=== PATIENT | female | born 1940 | race Caucasian/White ===

== ENCOUNTER → 2019-05-20 | Outpatient (CLI) | payer MEDICARE ==
[2019-05-20 10:46] LABS: BASO # 0.1 10*3/uL (0.0-0.1); EOS # 0.3 10*3/uL (0.0-0.4); EOS % 3.9 % (1.0-4.0); HEMATOCRIT 40.7 % (37.0-47.0); HEMOGLOBIN 12.8 g/dl (12.0-16.0); LYMPH # 1.4 10*3/uL (1.3-4.4); LYMPH % 17.1 % (27.0-41.0); MEAN CELL VOLUME 84.8 fl (81.0-99.0); MEAN CORPUSCULAR HGB 26.7 pg (27.0-31.0); MEAN CORPUSCULAR HGB CONC 31.4 g/dl (33.0-37.0); MEAN PLATELET VOLUME 11.1 fl (9.6-12.3); MONO # 0.6 10*3/uL (0.1-1.0); NEUT # 5.7 10*3/uL (2.3-7.9); NEUT % 70.6 % (47.0-73.0); PLATELET COUNT AUTOMATED 210 10*3/uL (130-400); RED CELL DISTRI WIDTH 14.9 % (0-14.5); WHITE BLOOD COUNT 8.1 10*3/uL (4.8-10.8)
[2019-05-20 11:13] LABS: ALBUMIN 3.8 gm/dl (3.1-4.5); ALKALINE PHOSPHATASE 57 U/L (45-117); BUN 13 mg/dl (7-24); CHLORIDE 106 mmol/L (98-107); CHOLESTEROL 179 mg/dL (<200); CREATININE 0.94 mg/dL (0.55-1.02); FREE T4 1.19 ng/dl (0.76-1.46); HDL CHOLESTEROL 56 mg/dl (40-60); LDL CHOLESTEROL 88 mg/dL (9-159); POTASSIUM 4.1 mmol/L (3.5-5.1); SGOT/AST 20 IU/L (3-35); SGPT/ALT 18 U/L (12-78); SODIUM 139 mmol/L (136-145); TOTAL PROTEIN 7.9 gm/dL (6.4-8.2); TRIGLYCERIDES 175 mg/dl (<150); VLDL CHOLESTEROL 35 mg/dL (6-40)
[2019-05-20 11:21] LABS: VITAMIN D, 25-HYDROXY 36.9 ng/mL (30-100)
== END | disposition home or self-care (01) ==
LOC: LAB 10:07
PROVIDERS: Internal Medicine
DX: E11.9 Type 2 diabetes mellitus without complications (principal); E03.9 Hypothyroidism, unspecified; E78.2 Mixed hyperlipidemia; I10 Essential (primary) hypertension; E55.9 Vitamin D deficiency, unspecified; D51.9 Vitamin B12 deficiency anemia, unspecified; D52.9 Folate deficiency anemia, unspecified

== ENCOUNTER → 2019-11-27 | Outpatient (CLI) | payer MEDICARE ==
[2019-11-27 09:41] LABS: BASO # 0.1 10*3/uL (0.0-0.1); BASO % 1.2 % (0.0-1.0); EOS # 0.3 10*3/uL (0.0-0.4); EOS % 3.5 % (1.0-4.0); HEMATOCRIT 39.5 % (37.0-47.0); HEMOGLOBIN 12.5 g/dl (12.0-16.0); LYMPH # 1.9 10*3/uL (1.3-4.4); LYMPH % 24.1 % (27.0-41.0); MEAN CELL VOLUME 81.4 fl (81.0-99.0); MEAN CORPUSCULAR HGB 25.8 pg (27.0-31.0); MEAN CORPUSCULAR HGB CONC 31.6 g/dl (33.0-37.0); MONO # 0.6 10*3/uL (0.1-1.0); MONO % 7.6 % (3.0-9.0); NEUT % 63.2 % (47.0-73.0); PLATELET COUNT AUTOMATED 217 10*3/uL (130-400); RED BLOOD COUNT 4.85 10*6/uL (4.10-5.10); RED CELL DISTRI WIDTH 15.3 % (0-14.5); WHITE BLOOD COUNT 7.8 10*3/uL (4.8-10.8)
[2019-11-27 10:02] LABS: ALBUMIN 3.6 gm/dl (3.1-4.5); ALKALINE PHOSPHATASE 59 U/L (45-117); BUN 19 mg/dl (7-24); CHLORIDE 107 mmol/L (98-107); CHOLESTEROL 165 mg/dL (<200); CREATININE 0.89 mg/dL (0.55-1.02); POTASSIUM 3.9 mmol/L (3.5-5.1); SGOT/AST 17 IU/L (3-35); SGPT/ALT 23 U/L (12-78); SODIUM 137 mmol/L (136-145); TOTAL PROTEIN 7.8 gm/dL (6.4-8.2); TRIGLYCERIDES 142 mg/dl (<150); VLDL CHOLESTEROL 28 mg/dL (6-40)
[2019-11-27 10:08] LABS: FREE T4 1.13 ng/dl (0.76-1.46); HDL CHOLESTEROL 58 mg/dl (40-60); LDL CHOLESTEROL 79 mg/dL (9-159)
[2019-11-27 11:30] LABS: VITAMIN D, 25-HYDROXY 40.7 ng/mL (30-100)
== END | disposition home or self-care (01) ==
LOC: LAB 09:21
PROVIDERS: Internal Medicine
DX: I10 Essential (primary) hypertension (principal); E11.9 Type 2 diabetes mellitus without complications; I48.20 Chronic atrial fibrillation, unspecified; E78.2 Mixed hyperlipidemia; E55.9 Vitamin D deficiency, unspecified

== ENCOUNTER 2020-12-03 15:01 | Inpatient (IN) | payer MEDICARE ==
[2020-12-03] VITALS (7 sets, daily range): BP systolic 133–195; BP diastolic 65–104
[~2020-12-03] VITALS: Ht 165.1 cm; Wt 97.1 kg
[2020-12-03] MEDS ORDERED: GLIPIZIDE10 M2 PO (15:38)
[2020-12-03] MEDS ORDERED: 'CLONIDINE0.1 MG PO ×2 (15:38→19:55)
[2020-12-03] MEDS ORDERED: GLUCOPHAGE1000 MG PO (15:39)
[2020-12-03] MEDS ORDERED: RAMIPRIL10 MG PO (15:39)
[2020-12-03] MEDS ORDERED: LOPRESSOR50 M1 PO (15:43)
[2020-12-03] MEDS ORDERED: METOPROLOL TART75 MG PO (15:44)
[2020-12-03 15:45] LABS: BASO # 0.1 10*3/uL (0.0-0.1); EOS # 0.2 10*3/uL (0.0-0.4); EOS % 2.2 % (1.0-4.0); HEMATOCRIT 38.5 % (37.0-47.0); LYMPH # 1.9 10*3/uL (1.3-4.4); LYMPH % 20.3 % (27.0-41.0); MEAN CELL VOLUME 82.4 fl (81.0-99.0); MEAN CORPUSCULAR HGB 25.1 pg (27.0-31.0); MEAN CORPUSCULAR HGB CONC 30.4 g/dl (33.0-37.0); MEAN PLATELET VOLUME 11.3 fl (9.6-12.3); MONO # 0.6 10*3/uL (0.1-1.0); MONO % 6.1 % (3.0-9.0); NEUT # 6.4 10*3/uL (2.3-7.9); PLATELET COUNT AUTOMATED 221 10*3/uL (130-400); RED BLOOD COUNT 4.67 10*6/uL (4.10-5.10); RED CELL DISTRI WIDTH 14.9 % (0-14.5); WHITE BLOOD COUNT 9.1 10*3/uL (4.8-10.8)
[2020-12-03] MEDS ORDERED: NORVASC5 MG PO (15:45)
[2020-12-03] MEDS ORDERED: SIMVASTATIN20 MG PO (15:46)
[2020-12-03] MEDS ORDERED: WARFARIN2 MG PO (15:49)
[2020-12-03] MEDS ORDERED: Coumadin3 MG PO (15:50)
[2020-12-03 15:55] LABS: INTERNATIONAL NORM RATIO 2.4 (2.0-3.5)
[2020-12-03 15:58] LABS: ALBUMIN 3.7 gm/dl (3.1-4.5); ALKALINE PHOSPHATASE 62 U/L (45-117); BUN 14 mg/dl (7-24); CHLORIDE 107 mmol/L (98-107); CREATININE 0.92 mg/dL (0.55-1.02); POTASSIUM 3.9 mmol/L (3.5-5.1); SGOT/AST 18 IU/L (3-35); SGPT/ALT 23 U/L (12-78); SODIUM 136 mmol/L (136-145); TOTAL PROTEIN 7.8 gm/dL (6.4-8.2)
[2020-12-03 16:00] LABS: TROPONIN I < 0.015 ng/ml (<0.045)
[2020-12-03 16:27] LABS: BILIRUBIN Negative (Negative); BLOOD Negative (Negative); CLARITY Clear (Clear); COLOR Yellow (Yellow); GLUCOSE Negative (Negative); KETONE Negative (Negative); LEUKO ESTERASE Negative (Negative); NITRITE Negative (Negative); SPECIFIC GRAVITY <= 1.005 (1.001-1.030); UROBILINOGEN 0.2 E.U./dl (0.0-1.0)
[2020-12-03 16:32] LABS: BACTERIA TRACE; EPITHELIAL CELLS 0-2; RBC 0-2 rbc/hpf (0-2); WBC 0-2 wbc/hpf (0-5)
[2020-12-03] MEDS ORDERED: HYDRALAZINE HYD50 MG PO (19:27)
[2020-12-03] MEDS ORDERED: TOPROL XL100 MG PO (19:27)
[2020-12-03] MEDS ORDERED: ESOMEPRAZOLE MA40 M1 PO (19:57)
[2020-12-04] VITALS (8 sets, daily range): BP systolic 122–180; BP diastolic 50–73
[2020-12-05] VITALS: BP 150/69
[2020-12-05 05:26] VITALS: BP 133/52
[2020-12-05 08:00] VITALS: BP 118/52
[2020-12-05 12:00] VITALS: BP 134/63
[2020-12-05] MEDS ORDERED: LISINOPRIL20 MG PO (15:27)
[2020-12-05] MEDS ORDERED: TRIAMTERENE & H1 CAP PO (15:27)
[2020-12-05 16:00] VITALS: BP 138/63
== END 2020-12-05 17:16 | disposition home or self-care (01) | DRG 291 ==
LOC: ED 15:01 → EDHOLD 17:21 → 5E 17:21
PROVIDERS: Physician Assistant; ADMIT Internal Medicine; ATTEND Internal Medicine
DX: I11.0 Hypertensive heart disease with heart failure (principal); I50.31 Acute diastolic (congestive) heart failure; I48.21 Permanent atrial fibrillation; M17.12 Unilateral primary osteoarthritis, left knee; Z96.652 Presence of left artificial knee joint; E11.9 Type 2 diabetes mellitus without complications; K21.00 Gastro-esophageal reflux disease with esophagitis, without bleeding; E78.2 Mixed hyperlipidemia; Z88.8 Allergy status to other drugs, medicaments and biological substances; Z79.01 Long term (current) use of anticoagulants

== ENCOUNTER → 2021-06-28 | Outpatient (CLI) | payer MEDICARE ==
[~2021-06-28] MED LIST: 'CLONIDINE0.1 MG PO; Coumadin3 MG PO; ESOMEPRAZOLE MA40 M1 PO; GLIPIZIDE10 M2 PO; GLUCOPHAGE1000 MG PO; HYDRALAZINE HYD50 MG PO; LISINOPRIL20 MG PO; LOPRESSOR50 M1 PO; METOPROLOL TART75 MG PO; NORVASC5 MG PO; RAMIPRIL10 MG PO; SIMVASTATIN20 MG PO; TOPROL XL100 MG PO; TRIAMTERENE & H1 CAP PO; WARFARIN2 MG PO
[2021-06-28 12:02] LABS: BASO # 0.1 10*3/uL (0.0-0.1); BASO % 1.1 % (0.0-1.0); EOS # 0.2 10*3/uL (0.0-0.4); EOS % 2.7 % (1.0-4.0); HEMATOCRIT 37.9 % (37.0-47.0); LYMPH # 1.7 10*3/uL (1.3-4.4); MEAN CELL VOLUME 83.3 fl (81.0-99.0); MEAN CORPUSCULAR HGB 26.2 pg (27.0-31.0); MEAN CORPUSCULAR HGB CONC 31.4 g/dl (33.0-37.0); MONO # 0.6 10*3/uL (0.1-1.0); MONO % 8.2 % (3.0-9.0); NEUT # 4.8 10*3/uL (2.3-7.9); NEUT % 64.3 % (47.0-73.0); PLATELET COUNT AUTOMATED 208 10*3/uL (130-400); RED BLOOD COUNT 4.55 10*6/uL (4.10-5.10); RED CELL DISTRI WIDTH 15.1 % (0-14.5); WHITE BLOOD COUNT 7.4 10*3/uL (4.8-10.8)
[2021-06-28 12:40] LABS: ALBUMIN 3.7 gm/dl (3.1-4.5); ALKALINE PHOSPHATASE 43 U/L (45-117); BUN 17 mg/dl (7-24); CHLORIDE 109 mmol/L (98-107); CHOLESTEROL 178 mg/dL (<200); CREATININE 0.91 mg/dL (0.55-1.02); FREE T4 1.16 ng/dl (0.76-1.46); LDL CHOLESTEROL 94 mg/dL (9-159); POTASSIUM 4.3 mmol/L (3.5-5.1); SGOT/AST 21 IU/L (3-35); SGPT/ALT 21 U/L (12-78); SODIUM 139 mmol/L (136-145); TOTAL PROTEIN 7.6 gm/dL (6.4-8.2); TRIGLYCERIDES 140 mg/dl (<150)
[2021-06-28 13:42] LABS: VITAMIN D, 25-HYDROXY 53.2 ng/mL (30-100)
== END | disposition home or self-care (01) ==
LOC: LAB 11:44
PROVIDERS: ATTEND Internal Medicine
DX: I10 Essential (primary) hypertension (principal); I48.21 Permanent atrial fibrillation; E78.2 Mixed hyperlipidemia; E55.9 Vitamin D deficiency, unspecified; E11.9 Type 2 diabetes mellitus without complications

== ENCOUNTER → 2022-01-05 | Outpatient (CLI) | payer MEDICARE ==
[2022-01-05 10:42] LABS: BASO % 0.7 % (0.0-1.0); EOS # 0.2 10*3/uL (0.0-0.4); EOS % 2.7 % (1.0-4.0); HEMATOCRIT 33.9 % (37.0-47.0); LYMPH % 16.5 % (27.0-41.0); MEAN CELL VOLUME 81.3 fl (81.0-99.0); MEAN CORPUSCULAR HGB 25.4 pg (27.0-31.0); MEAN CORPUSCULAR HGB CONC 31.3 g/dl (33.0-37.0); MEAN PLATELET VOLUME 10.7 fl (9.6-12.3); MONO # 0.6 10*3/uL (0.1-1.0); MONO % 10.3 % (3.0-9.0); NEUT # 4.1 10*3/uL (2.3-7.9); NEUT % 69.6 % (47.0-73.0); PLATELET COUNT AUTOMATED 215 10*3/uL (130-400); RED BLOOD COUNT 4.17 10*6/uL (4.10-5.10); RED CELL DISTRI WIDTH 16.2 % (0-14.5); WHITE BLOOD COUNT 5.8 10*3/uL (4.8-10.8)
[2022-01-05 11:05] LABS: ALKALINE PHOSPHATASE 48 U/L (45-117); BUN 14 mg/dl (7-24); CHLORIDE 108 mmol/L (98-107); CHOLESTEROL 150 mg/dL (<200); CREATININE 0.92 mg/dL (0.55-1.02); LDL CHOLESTEROL 73 mg/dL (9-159); POTASSIUM 4.8 mmol/L (3.5-5.1); SGOT/AST 18 IU/L (3-35); SGPT/ALT 22 U/L (12-78); SODIUM 138 mmol/L (136-145); T3 UPTAKE 33 % (31-39); THYROXINE (T4) TOTAL 11.2 ug/dl (4.8-13.9); TOTAL PROTEIN 7.4 gm/dL (6.4-8.2); TRIGLYCERIDES 116 mg/dl (<150)
[2022-01-05 11:37] LABS: VITAMIN D, 25-HYDROXY 57.7 ng/mL (30-100)
== END | disposition home or self-care (01) ==
LOC: LAB 10:11
PROVIDERS: ATTEND Internal Medicine
DX: I10 Essential (primary) hypertension (principal); E11.65 Type 2 diabetes mellitus with hyperglycemia; E55.9 Vitamin D deficiency, unspecified; E78.2 Mixed hyperlipidemia

== ENCOUNTER → 2022-01-07 | Outpatient (CLI) | payer MEDICARE | END | disposition home or self-care (01) | LOC: RAD 01:11 | PROVIDERS: ATTEND Internal Medicine | DX: M85.88 Other specified disorders of bone density and structure, other site (principal) ==

== ENCOUNTER → 2022-07-01 | Outpatient (CLI) | payer MEDICARE | END | disposition home or self-care (01) | LOC: MRI 12:30 | PROVIDERS: ATTEND Internal Medicine | DX: M47.816 Spondylosis without myelopathy or radiculopathy, lumbar region (principal); M48.061 Spinal stenosis, lumbar region without neurogenic claudication ==

== ENCOUNTER 2022-11-13 09:04 | Emergency (ER) | payer MEDICARE ==
[~2022-11-13] VITALS: Ht 165.1 cm; Wt 87.1 kg
[2022-11-13 09:41] LABS: BASO # 0.1 10*3/uL (0.0-0.1); BASO % 0.8 % (0.0-1.0); EOS # 0.3 10*3/uL (0.0-0.4); EOS % 4.9 % (1.0-4.0); HEMATOCRIT 36.1 % (37.0-47.0); LYMPH # 0.8 10*3/uL (1.3-4.4); LYMPH % 13.1 % (27.0-41.0); MEAN CELL VOLUME 84.7 fl (81.0-99.0); MEAN CORPUSCULAR HGB 26.5 pg (27.0-31.0); MEAN CORPUSCULAR HGB CONC 31.3 g/dl (33.0-37.0); MEAN PLATELET VOLUME 11.3 fl (9.6-12.3); MONO # 0.5 10*3/uL (0.1-1.0); MONO % 8.1 % (3.0-9.0); NEUT # 4.5 10*3/uL (2.3-7.9); NEUT % 72.8 % (47.0-73.0); PLATELET COUNT AUTOMATED 196 10*3/uL (130-400); RED BLOOD COUNT 4.26 10*6/uL (4.10-5.10); RED CELL DISTRI WIDTH 14.8 % (0-14.5); WHITE BLOOD COUNT 6.2 10*3/uL (4.8-10.8)
[2022-11-13 09:57] LABS: ACT PARTIAL THROMBO TIME 39.3 SECONDS (20.0-32.1); INTERNATIONAL NORM RATIO 3.1 (2.0-3.5)
[2022-11-13 10:07] LABS: ALKALINE PHOSPHATASE 39 U/L (46-116); BUN 11 mg/dl (9-23); CHLORIDE 107 mmol/L (98-107); POTASSIUM 3.7 mmol/L (3.4-5.1); SGPT/ALT 12 U/L (10-49); TOTAL PROTEIN 6.6 gm/dL (6.0-8.0)
[2022-11-13] MEDS ORDERED: METOPROLOL TAR100 M1 PO (10:08)
[2022-11-13] MEDS ORDERED: RAMIPRIL10 MG PO (10:10)
[2022-11-13] MEDS ORDERED: FUROSEMIDE40 MG PO (10:11)
[2022-11-13] MEDS ORDERED: POTASSIUM CHLO20 ME4 PO (10:11)
[2022-11-13] MEDS ORDERED: NEURONTIN300 MG PO (10:12)
== END 2022-11-13 10:22 | disposition home or self-care (01) ==
LOC: ED 09:04
PROVIDERS: Family Medicine
DX: R04.0 Epistaxis (principal); Z88.8 Allergy status to other drugs, medicaments and biological substances; Z90.49 Acquired absence of other specified parts of digestive tract; Z96.652 Presence of left artificial knee joint; Z98.890 Other specified postprocedural states

== ENCOUNTER → 2022-11-18 | Outpatient (CLI) | payer MEDICARE ==
[~2022-11-18] MED LIST changes: +FUROSEMIDE40 MG PO; +METOPROLOL TAR100 M1 PO; +NEURONTIN300 MG PO; +POTASSIUM CHLO20 ME4 PO
[2022-11-18 08:35] LABS: BASO # 0.1 10*3/uL (0.0-0.1); EOS # 0.3 10*3/uL (0.0-0.4); EOS % 4.2 % (1.0-4.0); HEMATOCRIT 34.3 % (37.0-47.0); LYMPH # 1.2 10*3/uL (1.3-4.4); LYMPH % 14.6 % (27.0-41.0); MEAN CELL VOLUME 85.5 fl (81.0-99.0); MEAN CORPUSCULAR HGB 26.4 pg (27.0-31.0); MEAN CORPUSCULAR HGB CONC 30.9 g/dl (33.0-37.0); MEAN PLATELET VOLUME 11.1 fl (9.6-12.3); MONO # 0.6 10*3/uL (0.1-1.0); MONO % 7.5 % (3.0-9.0); NEUT # 5.7 10*3/uL (2.3-7.9); NEUT % 72.2 % (47.0-73.0); PLATELET COUNT AUTOMATED 225 10*3/uL (130-400); RED BLOOD COUNT 4.01 10*6/uL (4.10-5.10); RED CELL DISTRI WIDTH 15.2 % (0-14.5); WHITE BLOOD COUNT 7.9 10*3/uL (4.8-10.8)
== END | disposition home or self-care (01) ==
LOC: LAB 08:11
PROVIDERS: ATTEND Internal Medicine
DX: R53.81 Other malaise (principal)

== ENCOUNTER → 2023-01-20 | Outpatient (CLI) | payer MEDICARE | END | disposition home or self-care (01) | LOC: RESCLI 01:13 | PROVIDERS: ATTEND Internal Medicine | DX: I10 Essential (primary) hypertension (principal); E11.9 Type 2 diabetes mellitus without complications; I48.91 Unspecified atrial fibrillation; K21.9 Gastro-esophageal reflux disease without esophagitis; R60.0 Localized edema; M85.80 Other specified disorders of bone density and structure, unspecified site; E78.5 Hyperlipidemia, unspecified; Z88.8 Allergy status to other drugs, medicaments and biological substances; Z98.890 Other specified postprocedural states; Z90.49 Acquired absence of other specified parts of digestive tract; Z79.899 Other long term (current) drug therapy ==

== ENCOUNTER → 2023-03-03 | Outpatient (CLI) | payer MEDICARE ==
[2023-03-03 10:12] LABS: URINE CREATININE RANDOM 82.32 mg/dL
[2023-03-03 10:27] LABS: BUN 18 mg/dl (9-23); CHLORIDE 107 mmol/L (98-107); CHOLESTEROL 157 mg/dL (<200); LDL CHOLESTEROL 82 mg/dL (9-159); POTASSIUM 4.3 mmol/L (3.4-5.1); TRIGLYCERIDES 132 mg/dl (<150)
== END | disposition home or self-care (01) ==
LOC: LAB 09:20
PROVIDERS: Internal Medicine; ATTEND Internal Medicine
DX: E11.9 Type 2 diabetes mellitus without complications (principal); E78.5 Hyperlipidemia, unspecified; M85.80 Other specified disorders of bone density and structure, unspecified site

== ENCOUNTER → 2023-04-04 | Outpatient (CLI) | payer MEDICARE | END | disposition home or self-care (01) | LOC: RESCLI 00:34 | PROVIDERS: ATTEND Internal Medicine | DX: E11.9 Type 2 diabetes mellitus without complications (principal); I10 Essential (primary) hypertension; K21.9 Gastro-esophageal reflux disease without esophagitis; E78.5 Hyperlipidemia, unspecified; I48.91 Unspecified atrial fibrillation; M85.80 Other specified disorders of bone density and structure, unspecified site; R60.0 Localized edema; Z98.890 Other specified postprocedural states; Z88.8 Allergy status to other drugs, medicaments and biological substances; Z82.49 Family history of ischemic heart disease and other diseases of the circulatory system; Z79.899 Other long term (current) drug therapy ==

== ENCOUNTER → 2023-05-02 | Outpatient (CLI) | payer MEDICARE | END | disposition home or self-care (01) | LOC: RESCLI 02:16 | PROVIDERS: ATTEND Family Medicine | DX: E11.9 Type 2 diabetes mellitus without complications (principal); I10 Essential (primary) hypertension; M85.80 Other specified disorders of bone density and structure, unspecified site; K21.9 Gastro-esophageal reflux disease without esophagitis; I48.91 Unspecified atrial fibrillation; R60.0 Localized edema; E78.5 Hyperlipidemia, unspecified; Z87.891 Personal history of nicotine dependence; Z88.8 Allergy status to other drugs, medicaments and biological substances; Z98.890 Other specified postprocedural states; Z90.49 Acquired absence of other specified parts of digestive tract; Z79.899 Other long term (current) drug therapy; Z82.49 Family history of ischemic heart disease and other diseases of the circulatory system; Z79.84 Long term (current) use of oral hypoglycemic drugs; Z79.01 Long term (current) use of anticoagulants ==

== ENCOUNTER → 2023-08-22 | Outpatient (CLI) | payer MEDICARE | END | disposition home or self-care (01) | LOC: RESCLI 00:21 | PROVIDERS: ATTEND Family Medicine | DX: I10 Essential (primary) hypertension (principal); E11.9 Type 2 diabetes mellitus without complications; E78.5 Hyperlipidemia, unspecified; K21.9 Gastro-esophageal reflux disease without esophagitis; I48.91 Unspecified atrial fibrillation; M85.80 Other specified disorders of bone density and structure, unspecified site; R60.0 Localized edema; Z87.891 Personal history of nicotine dependence; Z88.8 Allergy status to other drugs, medicaments and biological substances; Z90.49 Acquired absence of other specified parts of digestive tract; Z98.890 Other specified postprocedural states; Z90.710 Acquired absence of both cervix and uterus; Z79.84 Long term (current) use of oral hypoglycemic drugs; Z79.01 Long term (current) use of anticoagulants; Z79.899 Other long term (current) drug therapy ==

== ENCOUNTER → 2023-11-21 | Outpatient (CLI) | payer MEDICARE ==
[~2023-11-21] MED LIST changes: +ELIQUIS5 M1 PO
== END | disposition home or self-care (01) ==
LOC: RESCLI 02:13
PROVIDERS: ATTEND Internal Medicine
DX: I10 Essential (primary) hypertension (principal); E11.9 Type 2 diabetes mellitus without complications; K21.9 Gastro-esophageal reflux disease without esophagitis; I48.91 Unspecified atrial fibrillation; M85.80 Other specified disorders of bone density and structure, unspecified site; R60.0 Localized edema; E78.5 Hyperlipidemia, unspecified; Z88.8 Allergy status to other drugs, medicaments and biological substances; Z82.49 Family history of ischemic heart disease and other diseases of the circulatory system; Z90.49 Acquired absence of other specified parts of digestive tract; Z90.710 Acquired absence of both cervix and uterus; Z98.890 Other specified postprocedural states; Z79.84 Long term (current) use of oral hypoglycemic drugs; Z79.899 Other long term (current) drug therapy

== ENCOUNTER → 2023-11-29 | Day surgery (SDC) | payer MEDICARE ==
[~2023-11-29] VITALS: Ht 165.1 cm; Wt 76.7 kg
[~2023-11-29] MED LIST changes: +BALANCED SALT IRRIG SOLN NO.2 1.13 ML,Lidocaine Hydrochloride 0.37 ML,EPINEPHrine Hydro... IV SCH; +Balanced Salt Solution 500 ML OPH SCH; +Cefuroxime Sodium 5 MG in BALANCED SALT IRRIG SOLN NO.2 0.5 ML,SYRINGE, DISPOSABLE, 10 ... IO SCH; +Midazolam Hydrochloride 2 MG/2 ML VIAL IV ONE; +OFLOXACIN 0.3% 5 ML BOTTLE ONE; +OFLOXACIN 0.3% 5 ML BOTTLE OPH SCH; +PHENYLEPHRINE/KETOROLAC 4 ML in Balanced Salt Solution 500 ML OPH SCH; +POVIDONE IODINE 5% OPHTHALMIC 30 ML BOTTLE OPH ONE; +POVIDONE IODINE 5% OPHTHALMIC 30 ML BOTTLE OPH SCH; +Phenylephrine Hydrochloride 2 ML BOT OPH ONE; +Phenylephrine Hydrochloride 2 ML BOT OPH SCH; +Proparacaine Hydrochloride 15 ML BOT OPH ONE; +Proparacaine Hydrochloride 15 ML BOT OPH SCH; +SODIUM CHLORIDE 0.9% 1,000 ML IV SCH; +TETRACAINE HCL 10 DROP BOT OPH SCH; +TROPICAMIDE 3 ML BOT OPH ONE; +TROPICAMIDE 3 ML BOT OPH SCH; +Tetracaine Hydrochloride 0.5% 4 ML BOT OPH ONE; +Tetracaine Hydrochloride 0.5% 4 ML BOT OPH SCH; +hydrALAZINE hydrochloride 20 MG/ML VIAL IV ONE; +prednisoLONE acetate 1% OPHTHALMIC 5 ML BOT OPH ONE; +prednisoLONE acetate 1% OPHTHALMIC 5 ML BOT OPH SCH
[2023-11-29 07:56] VITALS: BP 194/80
[2023-11-29 08:49] VITALS: BP 168/68
[2023-11-29 09:00] VITALS: BP 159/66
[2023-11-29 09:18] VITALS: BP 140/54
== END | disposition home or self-care (01) ==
LOC: SDC 11-24 11:00
PROVIDERS: ATTEND Ophthalmology
DX: E11.36 Type 2 diabetes mellitus with diabetic cataract (principal); H25.811 Combined forms of age-related cataract, right eye; I10 Essential (primary) hypertension; E78.00 Pure hypercholesterolemia, unspecified; Z88.8 Allergy status to other drugs, medicaments and biological substances; Z79.899 Other long term (current) drug therapy; Z79.84 Long term (current) use of oral hypoglycemic drugs; Z79.01 Long term (current) use of anticoagulants

== ENCOUNTER → 2024-01-24 | Day surgery (SDC) | payer MEDICARE ==
[~2024-01-24] VITALS: Ht 165.1 cm; Wt 76.7 kg
[~2024-01-24] MED LIST changes: -BALANCED SALT IRRIG SOLN NO.2 1.13 ML,Lidocaine Hydrochloride 0.37 ML,EPINEPHrine Hydro... IV SCH; -TETRACAINE HCL 10 DROP BOT OPH SCH
[2024-01-24 07:10] VITALS: BP 225/81
[2024-01-24 08:08] VITALS: BP 186/73
[2024-01-24 08:23] VITALS: BP 176/68
[2024-01-24 08:38] VITALS: BP 172/82
== END | disposition home or self-care (01) ==
LOC: SDC 01-19 16:15
PROVIDERS: ATTEND Ophthalmology
DX: E11.36 Type 2 diabetes mellitus with diabetic cataract (principal); H25.12 Age-related nuclear cataract, left eye; I48.91 Unspecified atrial fibrillation; E78.00 Pure hypercholesterolemia, unspecified; Z90.49 Acquired absence of other specified parts of digestive tract; Z90.710 Acquired absence of both cervix and uterus; Z98.890 Other specified postprocedural states; Z79.84 Long term (current) use of oral hypoglycemic drugs; Z79.899 Other long term (current) drug therapy; Z88.8 Allergy status to other drugs, medicaments and biological substances

== ENCOUNTER → 2024-02-12 | Outpatient (CLI) | payer MEDICARE ==
[~2024-02-12] MED LIST changes: -Balanced Salt Solution 500 ML OPH SCH; -Cefuroxime Sodium 5 MG in BALANCED SALT IRRIG SOLN NO.2 0.5 ML,SYRINGE, DISPOSABLE, 10 ... IO SCH; -Midazolam Hydrochloride 2 MG/2 ML VIAL IV ONE; -OFLOXACIN 0.3% 5 ML BOTTLE ONE; -OFLOXACIN 0.3% 5 ML BOTTLE OPH SCH; -PHENYLEPHRINE/KETOROLAC 4 ML in Balanced Salt Solution 500 ML OPH SCH; -POVIDONE IODINE 5% OPHTHALMIC 30 ML BOTTLE OPH ONE; -POVIDONE IODINE 5% OPHTHALMIC 30 ML BOTTLE OPH SCH; -Phenylephrine Hydrochloride 2 ML BOT OPH ONE; -Phenylephrine Hydrochloride 2 ML BOT OPH SCH; -Proparacaine Hydrochloride 15 ML BOT OPH ONE; -Proparacaine Hydrochloride 15 ML BOT OPH SCH; -SODIUM CHLORIDE 0.9% 1,000 ML IV SCH; -TROPICAMIDE 3 ML BOT OPH ONE; -TROPICAMIDE 3 ML BOT OPH SCH; -Tetracaine Hydrochloride 0.5% 4 ML BOT OPH ONE; -Tetracaine Hydrochloride 0.5% 4 ML BOT OPH SCH; -hydrALAZINE hydrochloride 20 MG/ML VIAL IV ONE; -prednisoLONE acetate 1% OPHTHALMIC 5 ML BOT OPH ONE; -prednisoLONE acetate 1% OPHTHALMIC 5 ML BOT OPH SCH
[2024-02-12 11:32] LABS: BASO # 0.1 10*3/uL (0.0-0.1); BASO % 0.9 % (0.0-1.0); EOS # 0.2 10*3/uL (0.0-0.4); EOS % 3.2 % (1.0-4.0); HEMATOCRIT 32.2 % (37.0-47.0); LYMPH # 0.8 10*3/uL (1.3-4.4); LYMPH % 11.8 % (27.0-41.0); MEAN CELL VOLUME 79.9 fl (81.0-99.0); MEAN CORPUSCULAR HGB 25.3 pg (27.0-31.0); MEAN CORPUSCULAR HGB CONC 31.7 g/dl (33.0-37.0); MONO # 0.5 10*3/uL (0.1-1.0); MONO % 7.4 % (3.0-9.0); NEUT % 76.2 % (47.0-73.0); PLATELET COUNT AUTOMATED 213 10*3/uL (130-400); RED BLOOD COUNT 4.03 10*6/uL (4.10-5.10); WHITE BLOOD COUNT 6.6 10*3/uL (4.8-10.8)
[2024-02-12 11:45] LABS: URINE CREATININE RANDOM 75.7 mg/dL
[2024-02-12 11:53] LABS: ALKALINE PHOSPHATASE 47 U/L (46-116); BUN 11 mg/dl (9-23); CHLORIDE 106 mmol/L (98-107); CHOLESTEROL 148 mg/dL (<200); LDL CHOLESTEROL 85 mg/dL (9-159); POTASSIUM 4.2 mmol/L (3.4-5.1); TOTAL PROTEIN 7.1 gm/dL (6.0-8.0); TRIGLYCERIDES 112 mg/dl (<150)
[2024-02-12 12:04] LABS: SGPT/ALT < 7 U/L (5-49)
[2024-02-12 12:23] LABS: VITAMIN D, 25-HYDROXY 87.6 ng/mL (30-100)
== END | disposition home or self-care (01) ==
LOC: LAB 10:52
PROVIDERS: Student in an Organized Health Care Education/Training Program; ATTEND Student in an Organized Health Care Education/Training Program
DX: E11.9 Type 2 diabetes mellitus without complications (principal); I10 Essential (primary) hypertension; E55.9 Vitamin D deficiency, unspecified; E78.2 Mixed hyperlipidemia

== ENCOUNTER → 2024-02-20 | Outpatient (CLI) | payer MEDICARE | END | disposition home or self-care (01) | LOC: RESCLI 00:53 | PROVIDERS: ATTEND Internal Medicine | DX: I10 Essential (primary) hypertension (principal); E11.9 Type 2 diabetes mellitus without complications; D64.9 Anemia, unspecified; K21.9 Gastro-esophageal reflux disease without esophagitis; I48.91 Unspecified atrial fibrillation; R60.0 Localized edema; E78.5 Hyperlipidemia, unspecified; M79.2 Neuralgia and neuritis, unspecified; Z79.899 Other long term (current) drug therapy; Z88.8 Allergy status to other drugs, medicaments and biological substances; Z98.890 Other specified postprocedural states ==

== ENCOUNTER → 2024-02-27 | Outpatient (CLI) | payer MEDICARE | LOC: LAB 07:49 | PROVIDERS: ATTEND Student in an Organized Health Care Education/Training Program | DX: D64.9 Anemia, unspecified (principal) ==

== ENCOUNTER → 2024-05-14 | Outpatient (CLI) | payer MEDICARE | END | disposition home or self-care (01) | LOC: RESCLI 02:15 | PROVIDERS: ATTEND Internal Medicine | DX: I10 Essential (primary) hypertension (principal); K21.9 Gastro-esophageal reflux disease without esophagitis; I48.91 Unspecified atrial fibrillation; E78.5 Hyperlipidemia, unspecified; M85.80 Other specified disorders of bone density and structure, unspecified site; R60.0 Localized edema; Z88.8 Allergy status to other drugs, medicaments and biological substances; Z82.49 Family history of ischemic heart disease and other diseases of the circulatory system; Z90.49 Acquired absence of other specified parts of digestive tract; Z98.890 Other specified postprocedural states; Z79.899 Other long term (current) drug therapy ==

== ENCOUNTER 2024-07-30 17:48 | Inpatient (IN) | payer MEDICARE ==
[~2024-07-30] VITALS: Ht 165.1 cm; Wt 64.0 kg
[2024-07-30 16:21] VITALS: BP 180/72
[~2024-07-30 17:48] MED LIST changes: -CLONIDINE1 EAC1 T; -VITAMIN D325 MCG PO
[2024-07-30 18:04] VITALS: BP 206/83
[2024-07-30] MEDS ORDERED: VITAMIN D325 MCG PO (18:27)
[2024-07-30] MEDS ORDERED: FUROSEMIDE 40 MG/4 ML VIAL IV ONE (18:30)
[2024-07-30] MEDS ORDERED: AZITHROMYCIN 250 MG TAB PO ONE (19:05)
[2024-07-30] MEDS ORDERED: Ceftriaxone Sodium 1 GM/10 ML SYR IV ONE (19:05)
[2024-07-30 19:27] VITALS: BP 185/75
[2024-07-30] MEDS ORDERED: BISACODYL 10 MG SUPP R PRN (20:30)
[2024-07-30] MEDS ORDERED: Acetaminophen/Hydrocodone 5 MG/325 MG TABLET PO PRN (20:30)
[2024-07-30] MEDS ORDERED: BISACODYL 5 MG TAB PO PRN (20:30)
[2024-07-30] MEDS ORDERED: ACETAMINOPHEN 650 MG SUPP R PRN (20:30)
[2024-07-30] MEDS ORDERED: ACETAMINOPHEN 325 MG TAB PO PRN (20:30)
[2024-07-30] MEDS ORDERED: Magnesium Hydroxide 30 ML UDC PO PRN (20:30)
[2024-07-30] MEDS ORDERED: Ondansetron Hydrochloride 4 MG/2 ML VIAL IV PRN (20:30)
[2024-07-30] MEDS ORDERED: cloNIDine Hydrochloride 0.1 MG TAB PO ONE (21:15)
[2024-07-30] MEDS ORDERED: DEXTROSE 10 % IN WATER 250 ML IV PRN (22:55)
[2024-07-30 23:57] VITALS: BP 148/57
[2024-07-31] VITALS (7 sets, daily range): BP systolic 147–196; BP diastolic 51–80
[2024-07-31 05:24] LABS: FREE T4 1.43 ng/dl (0.89-1.76); POTASSIUM 4.1 mmol/L (3.4-5.1)
[2024-07-31] MEDS ORDERED: Pantoprazole Sodium 40 MG TAB PO SCH (06:00)
[2024-07-31 06:11] LABS: BASO % 0.8 % (0.0-1.0); EOS # 0.1 10*3/uL (0.0-0.4); EOS % 2.8 % (1.0-4.0); HEMATOCRIT 24.7 % (37.0-47.0); MEAN CELL VOLUME 87.3 fl (81.0-99.0); MEAN CORPUSCULAR HGB 28.3 pg (27.0-31.0); MEAN CORPUSCULAR HGB CONC 32.4 g/dl (33.0-37.0); MONO # 0.6 10*3/uL (0.1-1.0); MONO % 15.3 % (3.0-9.0); NEUT # 2.1 10*3/uL (2.3-7.9); NEUT % 51.8 % (47.0-73.0); PLATELET COUNT AUTOMATED 179 10*3/uL (130-400); RED BLOOD COUNT 2.83 10*6/uL (4.10-5.10); RED CELL DISTRI WIDTH 15.8 % (0-14.5)
[2024-07-31] MEDS ORDERED: INSULIN LISPRO 1 UNIT/0.01 ML SQ SCH (07:30)
[2024-07-31 08:45] LABS: VITAMIN D, 25-HYDROXY 77.7 ng/mL (30-100)
[2024-07-31] MEDS ORDERED: POTASSIUM CHLORIDE 20 MEQ TAB PO SCH (10:00)
[2024-07-31] MEDS ORDERED: FUROSEMIDE 40 MG/4 ML VIAL IV SCH (10:00)
[2024-07-31] MEDS ORDERED: hydrALAZINE hydrochloride 50 MG TAB PO SCH ×2 (10:00→22:00)
[2024-07-31] MEDS ORDERED: Metoprolol Tartrate 100 MG TAB PO SCH ×2 (10:00→22:00)
[2024-07-31] MEDS ORDERED: APIXABAN 5 MG TAB PO SCH (10:00)
[2024-07-31] MEDS ORDERED: AZITHROMYCIN 250 ML IV SCH (19:00)
[2024-07-31] MEDS ORDERED: Ceftriaxone Sodium 1 GM in SYRINGE INFUSION 10 ML IV SCH (20:00)
[2024-07-31] MEDS ORDERED: SIMVASTATIN 20 MG TAB PO SCH (22:00)
[2024-07-31] MEDS ORDERED: Metoprolol Tartrate 25 MG TAB PO SCH (22:00)
[2024-08-01] VITALS (7 sets, daily range): BP systolic 107–200; BP diastolic 51–85
[2024-08-01 06:20] LABS: BASO # 0.1 10*3/uL (0.0-0.1); BASO % 1.2 % (0.0-1.0); EOS # 0.2 10*3/uL (0.0-0.4); EOS % 4.4 % (1.0-4.0); HEMATOCRIT 27.4 % (37.0-47.0); MEAN CELL VOLUME 88.4 fl (81.0-99.0); MEAN CORPUSCULAR HGB 27.7 pg (27.0-31.0); MEAN CORPUSCULAR HGB CONC 31.4 g/dl (33.0-37.0); MEAN PLATELET VOLUME 10.7 fl (9.6-12.3); MONO # 0.6 10*3/uL (0.1-1.0); MONO % 12.9 % (3.0-9.0); NEUT # 2.6 10*3/uL (2.3-7.9); NEUT % 60.7 % (47.0-73.0); PLATELET COUNT AUTOMATED 210 10*3/uL (130-400); RED CELL DISTRI WIDTH 15.7 % (0-14.5); WHITE BLOOD COUNT 4.3 10*3/uL (4.8-10.8)
[2024-08-01 07:38] LABS: POTASSIUM 3.8 mmol/L (3.4-5.1)
[2024-08-01] MEDS ORDERED: FUROSEMIDE 40 MG/4 ML VIAL IV SCH (10:00)
[2024-08-01] MEDS ORDERED: FUROSEMIDE 20 MG/2 ML VIAL IV SCH (10:00)
[2024-08-01 11:47] LABS: LIPASE 148 U/L (12-53)
[2024-08-01] MEDS ORDERED: amLODIPine besylate 10 MG TAB PO SCH (14:00)
[2024-08-01] MEDS ORDERED: hydrALAZINE hydrochloride 50 MG TAB PO SCH (14:00)
[2024-08-01] MEDS ORDERED: HYDRALAZINE HYD50 MG PO (14:20)
[2024-08-01] MEDS ORDERED: CLONIDINE1 EAC1 T (14:23)
[2024-08-02] VITALS: BP 155/57
[2024-08-02 06:31] LABS: BASO # 0.1 10*3/uL (0.0-0.1); BASO % 1.3 % (0.0-1.0); EOS # 0.2 10*3/uL (0.0-0.4); EOS % 4.1 % (1.0-4.0); HEMATOCRIT 25.2 % (37.0-47.0); MEAN CELL VOLUME 86.3 fl (81.0-99.0); MEAN CORPUSCULAR HGB 27.7 pg (27.0-31.0); MEAN CORPUSCULAR HGB CONC 32.1 g/dl (33.0-37.0); MEAN PLATELET VOLUME 10.4 fl (9.6-12.3); MONO # 0.5 10*3/uL (0.1-1.0); MONO % 11.6 % (3.0-9.0); NEUT # 2.6 10*3/uL (2.3-7.9); NEUT % 66.2 % (47.0-73.0); PLATELET COUNT AUTOMATED 162 10*3/uL (130-400); RED BLOOD COUNT 2.92 10*6/uL (4.10-5.10); RED CELL DISTRI WIDTH 15.6 % (0-14.5); WHITE BLOOD COUNT 3.9 10*3/uL (4.8-10.8)
[2024-08-02 06:55] LABS: POTASSIUM 4.6 mmol/L (3.4-5.1); TOTAL PROTEIN 5.9 gm/dL (6.0-8.0)
[2024-08-02 08:00] VITALS: BP 155/61
[2024-08-02 12:00] VITALS: BP 148/78
[2024-08-02 13:54] LABS: BILIRUBIN Negative (Negative); BLOOD 2+ (Negative); CLARITY Clear (Clear); COLOR Yellow (Yellow); GLUCOSE Negative (Negative); KETONE Negative (Negative); LEUKO ESTERASE Negative (Negative); NITRITE Negative (Negative); PH 6.5 (4.5-8.0); SPECIFIC GRAVITY <= 1.005 (1.001-1.030); UROBILINOGEN 0.2 E.U./dl (0.0-1.0)
[2024-08-02 14:23] LABS: URINE CREATININE RANDOM 19.73 mg/dL
[2024-08-02 15:12] LABS: EPITHELIAL CELLS 0-2; RBC 41-50 rbc/hpf (0-2); WBC 0-2 wbc/hpf (0-5)
[2024-08-02 16:00] VITALS: BP 132/47
[2024-08-02 20:00] VITALS: BP 163/55
[2024-08-03] VITALS: BP 163/49
[2024-08-03 06:37] LABS: POTASSIUM 3.5 mmol/L (3.4-5.1)
[2024-08-03 08:00] VITALS: BP 144/59
[2024-08-03] MEDS ORDERED: FERROUS SULFATE 325 MG TAB PO SCH (10:00)
[2024-08-03 12:00] VITALS: BP 169/57
[2024-08-03 16:00] VITALS: BP 162/60
[2024-08-03 20:00] VITALS: BP 157/60
[2024-08-04] VITALS: BP 170/62; BP 182/69
[2024-08-04 06:22] LABS: POTASSIUM 3.4 mmol/L (3.4-5.1)
[2024-08-04 06:31] LABS: BASO % 0.7 % (0.0-1.0); EOS # 0.3 10*3/uL (0.0-0.4); EOS % 6.1 % (1.0-4.0); HEMATOCRIT 26.4 % (37.0-47.0); MEAN CELL VOLUME 86.8 fl (81.0-99.0); MEAN CORPUSCULAR HGB CONC 32.2 g/dl (33.0-37.0); MONO # 0.5 10*3/uL (0.1-1.0); MONO % 12.4 % (3.0-9.0); NEUT # 2.6 10*3/uL (2.3-7.9); NEUT % 64.1 % (47.0-73.0); PLATELET COUNT AUTOMATED 175 10*3/uL (130-400); RED BLOOD COUNT 3.04 10*6/uL (4.10-5.10); RED CELL DISTRI WIDTH 15.2 % (0-14.5); WHITE BLOOD COUNT 4.1 10*3/uL (4.8-10.8)
[2024-08-04 08:00] VITALS: BP 142/42; BP 148/60
[2024-08-04 12:00] VITALS: BP 189/64
[2024-08-04 16:00] VITALS: BP 199/69
[2024-08-04] MEDS ORDERED: hydrALAZINE hydrochloride 20 MG/ML VIAL IV ONE (16:30)
[2024-08-04 20:00] VITALS: BP 158/72
[2024-08-05] VITALS: BP 162/55
[2024-08-05 06:32] LABS: BASO % 0.9 % (0.0-1.0); EOS # 0.2 10*3/uL (0.0-0.4); HEMATOCRIT 29.4 % (37.0-47.0); MEAN CELL VOLUME 86.5 fl (81.0-99.0); MEAN CORPUSCULAR HGB 27.6 pg (27.0-31.0); MEAN PLATELET VOLUME 10.7 fl (9.6-12.3); MONO # 0.5 10*3/uL (0.1-1.0); MONO % 11.5 % (3.0-9.0); NEUT # 2.5 10*3/uL (2.3-7.9); NEUT % 59.2 % (47.0-73.0); PLATELET COUNT AUTOMATED 203 10*3/uL (130-400); RED CELL DISTRI WIDTH 15.1 % (0-14.5); WHITE BLOOD COUNT 4.3 10*3/uL (4.8-10.8)
[2024-08-05 06:56] LABS: POTASSIUM 4.3 mmol/L (3.4-5.1)
[2024-08-05 08:00] VITALS: BP 118/50
[2024-08-05 16:00] VITALS: BP 153/44
[2024-08-05 20:00] VITALS: BP 143/55
[2024-08-06] VITALS: BP 130/67
[2024-08-06 08:00] VITALS: BP 164/62
[2024-08-06 08:23] LABS: POTASSIUM 3.8 mmol/L (3.4-5.1)
[2024-08-06] MEDS ORDERED: LOPRESSOR25 MG PO (09:46)
[2024-08-06] MEDS ORDERED: MASON NATURAL325 MG PO (09:46)
[2024-08-06] MEDS ORDERED: HYDRALAZINE HYD50 MG PO (09:46)
[2024-08-06] MEDS ORDERED: ELIQUIS5 M1 PO (09:46)
== END 2024-08-06 11:45 | disposition home or self-care (01) | DRG 291 ==
LOC: ED 17:48 → EDHOLD 19:27 → 4E 19:27
PROVIDERS: Internal Medicine; Internal Medicine Nephrology; Registered Nurse; Student in an Organized Health Care Education/Training Program; ADMIT Internal Medicine; ATTEND Internal Medicine
DX: I13.0 Hypertensive heart and chronic kidney disease with heart failure and stage 1 through stage 4 chronic kidney disease, or unspecified chronic kidney disease (principal); I50.33 Acute on chronic diastolic (congestive) heart failure; N17.0 Acute kidney failure with tubular necrosis; I16.1 Hypertensive emergency; I48.21 Permanent atrial fibrillation; E78.2 Mixed hyperlipidemia; K21.9 Gastro-esophageal reflux disease without esophagitis; E11.22 Type 2 diabetes mellitus with diabetic chronic kidney disease; Z96.652 Presence of left artificial knee joint; D64.9 Anemia, unspecified; R63.4 Abnormal weight loss; E55.9 Vitamin D deficiency, unspecified; I08.3 Combined rheumatic disorders of mitral, aortic and tricuspid valves; N18.9 Chronic kidney disease, unspecified; Z91.041 Radiographic dye allergy status; Z88.8 Allergy status to other drugs, medicaments and biological substances; Z79.84 Long term (current) use of oral hypoglycemic drugs; Z79.899 Other long term (current) drug therapy; Z90.710 Acquired absence of both cervix and uterus; Z90.49 Acquired absence of other specified parts of digestive tract; Z98.42 Cataract extraction status, left eye; Z98.41 Cataract extraction status, right eye; Z82.5 Family history of asthma and other chronic lower respiratory diseases; Z83.3 Family history of diabetes mellitus; Z82.49 Family history of ischemic heart disease and other diseases of the circulatory system; Z68.24 Body mass index [BMI] 24.0-24.9, adult

== ENCOUNTER → 2024-07-30 | Outpatient (CLI) | payer MEDICARE ==
[~2024-07-30] MED LIST changes: +CLONIDINE1 EAC1 T; +VITAMIN D325 MCG PO
[2024-07-30 15:09] LABS: BASO % 0.8 % (0.0-1.0); EOS # 0.1 10*3/uL (0.0-0.4); EOS % 1.6 % (1.0-4.0); HEMATOCRIT 30.3 % (37.0-47.0); MEAN CELL VOLUME 89.9 fl (81.0-99.0); MEAN CORPUSCULAR HGB 27.9 pg (27.0-31.0); MEAN PLATELET VOLUME 10.2 fl (9.6-12.3); MONO # 0.4 10*3/uL (0.1-1.0); MONO % 8.4 % (3.0-9.0); NEUT # 3.5 10*3/uL (2.3-7.9); NEUT % 72.3 % (47.0-73.0); PLATELET COUNT AUTOMATED 232 10*3/uL (130-400); RED BLOOD COUNT 3.37 10*6/uL (4.10-5.10); RED CELL DISTRI WIDTH 15.9 % (0-14.5); WHITE BLOOD COUNT 4.9 10*3/uL (4.8-10.8)
[2024-07-30 15:33] LABS: POTASSIUM 4.7 mmol/L (3.4-5.1); TOTAL PROTEIN 7.3 gm/dL (6.0-8.0)
== END | disposition home or self-care (01) ==
LOC: LAB 14:47
PROVIDERS: ATTEND Internal Medicine Cardiovascular Disease
DX: I48.21 Permanent atrial fibrillation (principal); I50.31 Acute diastolic (congestive) heart failure

== ENCOUNTER → 2024-08-15 | Outpatient (CLI) | payer MEDICARE ==
[~2024-08-15] MED LIST changes: +CLONIDINE1 EAC1 T; +Hydralazine Hyd25 MG PO; +LOPRESSOR25 MG PO; +MASON NATURAL325 MG PO; +VITAMIN D325 MCG PO
[2024-08-15 12:34] LABS: BASO # 0.1 10*3/uL (0.0-0.1); BASO % 0.9 % (0.0-1.0); EOS # 0.2 10*3/uL (0.0-0.4); HEMATOCRIT 27.6 % (37.0-47.0); MEAN CORPUSCULAR HGB 28.1 pg (27.0-31.0); MEAN CORPUSCULAR HGB CONC 31.5 g/dl (33.0-37.0); MEAN PLATELET VOLUME 10.6 fl (9.6-12.3); MONO # 0.7 10*3/uL (0.1-1.0); MONO % 10.7 % (3.0-9.0); NEUT # 4.7 10*3/uL (2.3-7.9); NEUT % 69.7 % (47.0-73.0); PLATELET COUNT AUTOMATED 219 10*3/uL (130-400); RED CELL DISTRI WIDTH 14.4 % (0-14.5); WHITE BLOOD COUNT 6.7 10*3/uL (4.8-10.8)
[2024-08-15 13:22] LABS: POTASSIUM 4.9 mmol/L (3.4-5.1)
== END | disposition home or self-care (01) ==
LOC: RESCLI 01:29 → LAB 01:29 → RESCLI 04:51
PROVIDERS: Student in an Organized Health Care Education/Training Program; ATTEND Internal Medicine
DX: I10 Essential (primary) hypertension (principal); I48.91 Unspecified atrial fibrillation; D50.9 Iron deficiency anemia, unspecified

== ENCOUNTER 2024-08-16 16:44 | Inpatient (IN) | payer MEDICARE ==
[~2024-08-16] VITALS: Ht 165.1 cm; Wt 71.2 kg
[~2024-08-16 16:44] MED LIST changes: -Hydralazine Hyd25 MG PO
[2024-08-16 16:59] VITALS: BP 208/87
[2024-08-16] MEDS ORDERED: Hydralazine Hyd25 MG PO (17:18)
[2024-08-16] MEDS ORDERED: Ondansetron Hydrochloride 4 MG/2 ML VIAL IV PRN (18:00)
[2024-08-16] MEDS ORDERED: Magnesium Hydroxide 30 ML UDC PO PRN (18:00)
[2024-08-16] MEDS ORDERED: ACETAMINOPHEN 325 MG TAB PO PRN (18:00)
[2024-08-16] MEDS ORDERED: Metoprolol Tartrate 25 MG TAB PO SCH ×2 (18:35→22:00)
[2024-08-16] MEDS ORDERED: hydrALAZINE hydrochloride 25 MG TAB PO SCH ×2 (18:35→22:00)
[2024-08-16 20:22] VITALS: BP 194/81
[2024-08-16] MEDS ORDERED: hydrALAZINE hydrochloride 20 MG/ML VIAL IV ONE (20:40)
[2024-08-16 21:45] VITALS: BP 170/72
[2024-08-16] MEDS ORDERED: SIMVASTATIN 20 MG TAB PO SCH (22:00)
[2024-08-16] MEDS ORDERED: APIXABAN 5 MG TAB PO SCH (22:00)
[2024-08-16] MEDS ORDERED: DEXTROSE 10 % IN WATER 250 ML IV PRN (22:05)
[2024-08-17] VITALS: BP 162/56
[2024-08-17] MEDS ORDERED: FUROSEMIDE 40 MG/4 ML VIAL IV SCH (06:00)
[2024-08-17 06:38] LABS: BASO # 0.1 10*3/uL (0.0-0.1); BASO % 0.8 % (0.0-1.0); EOS # 0.2 10*3/uL (0.0-0.4); EOS % 3.1 % (1.0-4.0); MEAN CELL VOLUME 87.1 fl (81.0-99.0); MEAN CORPUSCULAR HGB 27.5 pg (27.0-31.0); MEAN CORPUSCULAR HGB CONC 31.6 g/dl (33.0-37.0); MEAN PLATELET VOLUME 10.9 fl (9.6-12.3); MONO # 0.5 10*3/uL (0.1-1.0); MONO % 7.3 % (3.0-9.0); NEUT # 5.1 10*3/uL (2.3-7.9); PLATELET COUNT AUTOMATED 175 10*3/uL (130-400); RED BLOOD COUNT 2.87 10*6/uL (4.10-5.10); RED CELL DISTRI WIDTH 14.2 % (0-14.5); WHITE BLOOD COUNT 6.4 10*3/uL (4.8-10.8)
[2024-08-17] MEDS ORDERED: INSULIN LISPRO 1 UNIT/0.01 ML SQ SCH (07:30)
[2024-08-17 08:00] VITALS: BP 154/50
[2024-08-17 08:11] LABS: POTASSIUM 4.3 mmol/L (3.4-5.1); TOTAL PROTEIN 6.7 gm/dL (6.0-8.0)
[2024-08-17] MEDS ORDERED: Benzocaine/Menthol 1 LOZ LOZENGE PO PRN (11:25)
[2024-08-17 12:00] VITALS: BP 167/60; BP 185/66
[2024-08-17 16:00] VITALS: BP 160/64
[2024-08-17 20:00] VITALS: BP 145/42
[2024-08-18] VITALS: BP 168/56
[2024-08-18 06:12] LABS: EOS # 0.2 10*3/uL (0.0-0.4); EOS % 5.3 % (1.0-4.0); HEMATOCRIT 23.5 % (37.0-47.0); MEAN CORPUSCULAR HGB 27.7 pg (27.0-31.0); MEAN CORPUSCULAR HGB CONC 31.1 g/dl (33.0-37.0); MEAN PLATELET VOLUME 10.3 fl (9.6-12.3); MONO # 0.5 10*3/uL (0.1-1.0); MONO % 10.9 % (3.0-9.0); NEUT # 2.8 10*3/uL (2.3-7.9); NEUT % 67.8 % (47.0-73.0); PLATELET COUNT AUTOMATED 163 10*3/uL (130-400); RED BLOOD COUNT 2.64 10*6/uL (4.10-5.10); RED CELL DISTRI WIDTH 14.1 % (0-14.5); WHITE BLOOD COUNT 4.1 10*3/uL (4.8-10.8)
[2024-08-18 06:46] LABS: POTASSIUM 4.2 mmol/L (3.4-5.1)
[2024-08-18 08:00] VITALS: BP 188/55
[2024-08-18 08:15] VITALS: BP 170/62
[2024-08-18] MEDS ORDERED: FERROUS SULFATE 325 MG TAB PO SCH (10:00)
[2024-08-18 12:00] VITALS: BP 138/46
[2024-08-18] MEDS ORDERED: hydrALAZINE hydrochloride 25 MG TAB PO SCH (12:00)
[2024-08-18 16:00] VITALS: BP 163/70
[2024-08-18 20:00] VITALS: BP 178/76
[2024-08-19] VITALS: BP 177/72
[2024-08-19 06:46] LABS: BASO # 0.1 10*3/uL (0.0-0.1); EOS # 0.2 10*3/uL (0.0-0.4); EOS % 4.7 % (1.0-4.0); HEMATOCRIT 24.5 % (37.0-47.0); MEAN CELL VOLUME 87.5 fl (81.0-99.0); MEAN CORPUSCULAR HGB 28.2 pg (27.0-31.0); MEAN CORPUSCULAR HGB CONC 32.2 g/dl (33.0-37.0); MEAN PLATELET VOLUME 10.8 fl (9.6-12.3); MONO # 0.5 10*3/uL (0.1-1.0); MONO % 10.6 % (3.0-9.0); NEUT # 3.3 10*3/uL (2.3-7.9); NEUT % 68.2 % (47.0-73.0); PLATELET COUNT AUTOMATED 185 10*3/uL (130-400); RED CELL DISTRI WIDTH 13.9 % (0-14.5); WHITE BLOOD COUNT 4.9 10*3/uL (4.8-10.8)
[2024-08-19 08:00] VITALS: BP 169/78
[2024-08-19] MEDS ORDERED: cloNIDine 0.2 MG PATCH T SCH (10:00)
[2024-08-19 10:31] LABS: POTASSIUM 3.7 mmol/L (3.4-5.1)
[2024-08-19 12:00] VITALS: BP 173/57
[2024-08-19 16:00] VITALS: BP 160/70
[2024-08-19 20:00] VITALS: BP 174/71; BP 94/60
[2024-08-19 22:27] LABS: BILIRUBIN Negative (Negative); BLOOD 3+ (Negative); CLARITY Clear (Clear); COLOR Yellow (Yellow); GLUCOSE Negative (Negative); KETONE Negative (Negative); LEUKO ESTERASE Trace (Negative); NITRITE Negative (Negative); SPECIFIC GRAVITY <= 1.005 (1.001-1.030); UROBILINOGEN 0.2 E.U./dl (0.0-1.0)
[2024-08-19 22:48] LABS: RBC TNTC rbc/hpf (0-2)
[2024-08-20] VITALS: BP 162/72
[2024-08-20 07:00] LABS: POTASSIUM 3.7 mmol/L (3.4-5.1)
[2024-08-20 07:10] LABS: BASO % 0.9 % (0.0-1.0); EOS # 0.2 10*3/uL (0.0-0.4); EOS % 4.4 % (1.0-4.0); HEMATOCRIT 24.4 % (37.0-47.0); MEAN CELL VOLUME 86.8 fl (81.0-99.0); MEAN CORPUSCULAR HGB 27.8 pg (27.0-31.0); MEAN PLATELET VOLUME 10.7 fl (9.6-12.3); MONO # 0.4 10*3/uL (0.1-1.0); MONO % 8.8 % (3.0-9.0); NEUT # 3.2 10*3/uL (2.3-7.9); NEUT % 71.2 % (47.0-73.0); PLATELET COUNT AUTOMATED 192 10*3/uL (130-400); RED BLOOD COUNT 2.81 10*6/uL (4.10-5.10); RED CELL DISTRI WIDTH 14.1 % (0-14.5); WHITE BLOOD COUNT 4.5 10*3/uL (4.8-10.8)
[2024-08-20 08:00] VITALS: BP 167/68
[2024-08-20 12:00] VITALS: BP 160/63
[2024-08-20] MEDS ORDERED: HYDRALAZINE HYD50 MG PO (15:37)
[2024-08-21 06:06] LABS: HBsAG SCREEN Negative (Negative); HCV Ab Non Reactive (Non Reactive); HEP B CORE Ab, IgM Negative (Negative)
[2024-08-21 16:05] LABS: A/G RATIO 0.9 (0.7-1.7); ALBUMIN 2.9 g/dL (2.9-4.4); ALPHA-1-GLOBULIN 0.3 g/dL (0.0-0.4); ALPHA-2-GLOBULIN 0.8 g/dL (0.4-1.0); BETA GLOBULIN 0.7 g/dL (0.7-1.3); FREE KAPPA LIGHT CHAINS 140.3 mg/L (3.3-19.4); FREE LAMBDA LIGHT CHAINS 104.8 mg/L (5.7-26.3); GAMMA GLOBULIN 1.4 g/dL (0.4-1.8); GLOBULIN, TOTAL 3.1 g/dL (2.2-3.9); KAPPA/LAMBDA RATIO 1.34 (0.26-1.65)
== END 2024-08-20 16:25 | disposition home or self-care (01) | DRG 682 ==
LOC: ED 16:44 → 4E 17:09 → EDHOLD 17:09 → 4E 19:20
PROVIDERS: Internal Medicine Nephrology; Student in an Organized Health Care Education/Training Program; ADMIT Student in an Organized Health Care Education/Training Program; ATTEND Student in an Organized Health Care Education/Training Program
DX: N17.0 Acute kidney failure with tubular necrosis (principal); I50.33 Acute on chronic diastolic (congestive) heart failure; I13.0 Hypertensive heart and chronic kidney disease with heart failure and stage 1 through stage 4 chronic kidney disease, or unspecified chronic kidney disease; I16.1 Hypertensive emergency; E87.1 Hypo-osmolality and hyponatremia; I48.11 Longstanding persistent atrial fibrillation; J91.8 Pleural effusion in other conditions classified elsewhere; E55.9 Vitamin D deficiency, unspecified; I35.0 Nonrheumatic aortic (valve) stenosis; I08.0 Rheumatic disorders of both mitral and aortic valves; Z20.822 Contact with and (suspected) exposure to COVID-19; N18.9 Chronic kidney disease, unspecified; E11.22 Type 2 diabetes mellitus with diabetic chronic kidney disease; K21.9 Gastro-esophageal reflux disease without esophagitis; E78.2 Mixed hyperlipidemia; E11.65 Type 2 diabetes mellitus with hyperglycemia; D64.9 Anemia, unspecified; Z88.8 Allergy status to other drugs, medicaments and biological substances; Z91.09 Other allergy status, other than to drugs and biological substances; Z79.899 Other long term (current) drug therapy; Z79.01 Long term (current) use of anticoagulants; Z79.2 Long term (current) use of antibiotics; Z98.42 Cataract extraction status, left eye; Z98.41 Cataract extraction status, right eye; Z90.49 Acquired absence of other specified parts of digestive tract; Z90.710 Acquired absence of both cervix and uterus; Z79.4 Long term (current) use of insulin; Z96.652 Presence of left artificial knee joint; Z82.5 Family history of asthma and other chronic lower respiratory diseases; Z82.49 Family history of ischemic heart disease and other diseases of the circulatory system; Z83.3 Family history of diabetes mellitus; W18.39XA Other fall on same level, initial encounter; Y93.89 Activity, other specified; Y92.89 Other specified places as the place of occurrence of the external cause; Y99.8 Other external cause status

== ENCOUNTER → 2024-08-26 | Outpatient (CLI) | payer MEDICARE ==
[~2024-08-26] MED LIST changes: +Hydralazine Hyd25 MG PO
[2024-08-26 09:47] LABS: BASO # 0.1 10*3/uL (0.0-0.1); EOS # 0.1 10*3/uL (0.0-0.4); EOS % 2.1 % (1.0-4.0); HEMATOCRIT 25.3 % (37.0-47.0); MEAN CORPUSCULAR HGB 27.8 pg (27.0-31.0); MEAN CORPUSCULAR HGB CONC 30.8 g/dl (33.0-37.0); MEAN PLATELET VOLUME 10.7 fl (9.6-12.3); MONO # 0.4 10*3/uL (0.1-1.0); MONO % 6.7 % (3.0-9.0); NEUT # 4.6 10*3/uL (2.3-7.9); NEUT % 79.8 % (47.0-73.0); PLATELET COUNT AUTOMATED 224 10*3/uL (130-400); RED BLOOD COUNT 2.81 10*6/uL (4.10-5.10); RED CELL DISTRI WIDTH 14.6 % (0-14.5); WHITE BLOOD COUNT 5.8 10*3/uL (4.8-10.8)
[2024-08-26 10:17] LABS: POTASSIUM 4.7 mmol/L (3.4-5.1); TOTAL PROTEIN 7.4 gm/dL (6.0-8.0)
== END | disposition home or self-care (01) ==
LOC: LAB 09:20
PROVIDERS: ATTEND Internal Medicine
DX: I50.33 Acute on chronic diastolic (congestive) heart failure (principal); R53.1 Weakness; N17.9 Acute kidney failure, unspecified

== ENCOUNTER 2024-09-16 12:55 | Emergency (ER) | payer MEDICARE ==
[2024-09-16] VITALS (9 sets, daily range): BP systolic 178–197; BP diastolic 66–85
[~2024-09-16] VITALS: Ht 165.1 cm; Wt 72.6 kg
[~2024-09-16 12:55] MED LIST changes: +AMLODIPINE BESYL5 MG PO; +HYDROXYZINE PAM25 M1 PO; +PREDNISONE10 MG PO
[2024-09-16] MEDS ORDERED: SODIUM CHLORIDE 0.9% 500 ML IV ONE (15:47)
== END 2024-09-16 20:21 | disposition home or self-care (01) ==
LOC: ED 12:55
DX: D64.9 Anemia, unspecified (principal); M79.601 Pain in right arm; Z88.8 Allergy status to other drugs, medicaments and biological substances; Z79.899 Other long term (current) drug therapy; Z90.710 Acquired absence of both cervix and uterus; Z90.49 Acquired absence of other specified parts of digestive tract; Z96.652 Presence of left artificial knee joint

== ENCOUNTER 2024-09-20 14:42 | Emergency (ER) | payer MEDICARE ==
[~2024-09-20] VITALS: Ht 165.1 cm; Wt 72.6 kg
[2024-09-20 15:56] LABS: HEMATOCRIT 24.4 % (37.0-47.0); MANUAL DIFF REFLEX YES; MEAN CELL VOLUME 89.7 fl (81.0-99.0); MEAN CORPUSCULAR HGB CONC 32.4 g/dl (33.0-37.0); MEAN PLATELET VOLUME 11.2 fl (9.6-12.3); PLATELET COUNT AUTOMATED 143 10*3/uL (130-400); RED BLOOD COUNT 2.72 10*6/uL (4.10-5.10); RED CELL DISTRI WIDTH 15.9 % (0-14.5); WHITE BLOOD COUNT 14.6 10*3/uL (4.8-10.8)
[2024-09-20 16:07] LABS: POTASSIUM 4.4 mmol/L (3.4-5.1)
[2024-09-20 16:11] LABS: TOTAL CELLS COUNTED 100 #CELLS
[2024-09-20 16:12] LABS: OVALOCYTES FEW; PLATELET SUFFICIENCY NORMAL (NORMAL)
[2024-09-20] MEDS ORDERED: INSULIN REGULAR, HUMAN 1 UNIT/0.01 ML SC ONE (16:25)
== END 2024-09-20 16:55 | disposition home or self-care (01) ==
LOC: ED 14:42
PROVIDERS: Physician Assistant Medical
DX: D64.9 Anemia, unspecified (principal); I11.0 Hypertensive heart disease with heart failure; I50.9 Heart failure, unspecified; E11.65 Type 2 diabetes mellitus with hyperglycemia; I48.91 Unspecified atrial fibrillation; K21.9 Gastro-esophageal reflux disease without esophagitis; E78.00 Pure hypercholesterolemia, unspecified; Z88.8 Allergy status to other drugs, medicaments and biological substances; Z90.711 Acquired absence of uterus with remaining cervical stump; Z90.49 Acquired absence of other specified parts of digestive tract; Z96.652 Presence of left artificial knee joint; Z98.890 Other specified postprocedural states

== ENCOUNTER → 2024-09-24 | Outpatient (CLI) | payer MEDICARE ==
[2024-09-24] VITALS (8 sets, daily range): BP systolic 145–182; BP diastolic 56–76
[~2024-09-24] MED LIST changes: +SODIUM CHLORIDE 0.9% 500 ML IV ONE
== END | disposition home or self-care (01) ==
LOC: TRNFUSION 00:20
PROVIDERS: ATTEND Student in an Organized Health Care Education/Training Program
DX: D64.9 Anemia, unspecified (principal); I48.91 Unspecified atrial fibrillation; K21.9 Gastro-esophageal reflux disease without esophagitis; E78.2 Mixed hyperlipidemia; E11.9 Type 2 diabetes mellitus without complications; I50.30 Unspecified diastolic (congestive) heart failure; I11.0 Hypertensive heart disease with heart failure; Z90.49 Acquired absence of other specified parts of digestive tract; Z90.710 Acquired absence of both cervix and uterus

== ENCOUNTER 2025-07-06 07:41 | Emergency (ER) | payer MEDICARE ==
[~2025-07-06] VITALS: Ht 165.1 cm; Wt 58.1 kg
[~2025-07-06 07:41] MED LIST changes: +AMLODIPINE BESY10 MG PO; +DOXYCYCLINE HY100 M3 PO; +DULCOLAX STOOL100 M1 PO; +ELIQUIS2.5 M1 PO; +HEALTHYLAX17 GM PO; +LASIX40 MG PO; +LOPRESSOR100 M1 PO; +LOSARTAN POTASS25 M1 PO; +RENVELA800 MG PO; -SODIUM CHLORIDE 0.9% 500 ML IV ONE; +TYLENOL325 M2 PO
[2025-07-06] MEDS ORDERED: Ondansetron4 MG PO (08:22)
[2025-07-06] MEDS ORDERED: PREDNISONE50 MG PO (08:22)
[2025-07-06] MEDS ORDERED: TRAMADOL HCL50 MG PO (08:22)
[2025-07-06] MEDS ORDERED: FAMCICLOVIR500 MG PO (08:22)
[2025-07-06] MEDS ORDERED: ACYCLOVIR 800 MG TAB PO ONE (08:55)
[2025-07-06] MEDS ORDERED: Dexamethasone Sodium Phospha 20 MG/5 ML VIAL IM ONE (08:55)
[2025-07-06] MEDS ORDERED: ACYCLOVIR 400 MG TAB PO ONE (09:00)
== END 2025-07-06 09:17 | disposition home or self-care (01) ==
LOC: ED 07:41
DX: B02.9 Zoster without complications (principal); Z79.899 Other long term (current) drug therapy; Z88.8 Allergy status to other drugs, medicaments and biological substances; Z90.49 Acquired absence of other specified parts of digestive tract; Z96.652 Presence of left artificial knee joint; Z98.890 Other specified postprocedural states